=== PATIENT | male | born 1975 | race Two or more races ===

== ENCOUNTER 2025-03-06 06:36 | Day surgery (SDC) | payer BC, SELFPAY ==
--- NOTE | 2025-03-05 07:00 | EKG_ITS ---
[facility] Test Date: 2025-03-05 Pat Name: PEACE GONZALEZ Department: Room: - Gender: Male Division Chair: DORIS : 1975 Requested By: Dionicio Anthony Order Number: [id number] Reading MD: Dionicio Anthony Measurements Intervals [place] Rate: 67 P: 26 [place]: 152 QRS: 3 QRSD: 107 T: 45 QT: 409 QTc: 432 Interpretive Statements SINUS RHYTHM No previous ECG available for comparison /store/S0/[id number].pdf
[2025-03-05 09:31] LABS: Basophils % (Auto) 0 % (0-2.5); Eosinophils # (Auto) 0.2 Thou/mm3 (0.0-0.5); Eosinophils % (Auto) 3 % (0-10); Hematocrit 39.2 % (41.0-53.0); Hemoglobin 13.8 g/dL (13.5-16.0); Immature Granulocytes % (Auto) 0 % (0-0); Immature Granulocytes Auto 0.02 Thou/mm3 (0.00-0.00); Lymphocytes # (Auto) 1.9 Thou/mm3 (1.0-4.8); Lymphocytes % (Auto) 28 % (10-50); Mean Corpuscular HGB Conc 35.2 g/dl (31.0-37.0); Mean Corpuscular Hemoglobin 30.4 pg (25.0-35.0); Mean Corpuscular Volume 86 fL (80-100); Monocytes # (Auto) 0.5 Thou/mm3 (0.0-0.8); Monocytes % (Auto) 8 % (0-12); Neutrophils # (Auto) 4.1 Thou/mm3 (1.8-7.7); Neutrophils % (Auto) 61 % (37-80); Nucleated Red Blood Cell % 0 /100 WBC (0); Platelet Count 211 Thou/mm3 (140-440); RDW Standard Deviation 39.8 fL (35.1-43.9); Red Blood Count 4.54 Miln/mm3 (4.50-5.90); White Blood Count 6.8 Thou/mm3 (3.8-10.6)
[2025-03-05 09:39] LABS: Partial Thromboplastin Time 28.4 Seconds (22.0-36.0); Prothrombin Time 11.4 Seconds (9.0-12.2)
[2025-03-06] VITALS (12 sets, daily range): BP systolic 108–128; BP diastolic 57–74; PULSE 71–85; RESP 9–22; TEMP 36.8–37.2; O2SAT 92–96; BMI 36.1
--- NOTE | 2025-03-06 09:00 | PD.CARDCATH ---
Cardiac Cath Procedure Procedure Name Date of procedure: 03/06/25 RELATIONSHIP ADVISOR: Dionicio Anthony MD PROCEDURE PERFORMED: 1. Left heart cardiac catheterization including right, left coronary angiograms and left ventriculogram 2. Ultrasound-guided access of the right radial artery 3. Conscious sedation for 30 minutes. Procedure Narrative HISTORY AND INDICATIONS:Luis is a 49 y/o male with PMHx of HTN, non-insulin dependent diabetes type II (newly diagnosed), HLD, herniated lumbar disk requiring decompression, cervical osteoarthritis? requiring cervical surgery 2018 complicated by hoarseness of voice and limited upward movements, chronic neuropathy, drop foot (R), chronic weakness and previous falls (does not use walker), CHEYANNE (uses CPAP every night) who initially presented for an evaluation of generalized weakness, fatigue and varicose veins, patient came in for evaluation of shortness of breath on exertion, had ischemic work up and showed stress induced ischemia in the inferior, inferior lateral, inferior septal and apical segments. Patient was brought in for an elective cardiac catheterization. Patient was explained the risk benefits and alternatives of performing a left heart cardiac catheterization including the risk of bleeding, heart attack, stroke and in detail and the agreeable for the procedure. Consent signed, placed in the chart and H&P updated. DESCRIPTION OF PROCEDURE: The patient was brought to the cardiac catheterization lab and all asceptic precautions were followed. Patient was given 1 Mg of Versed and 50 mcg of fentanyl for moderate conscious sedation. 2 mL of lidocaine was given in the right wrist. The right radial artery was accessed via the ultrasound guidance as well as micropuncture technique. A 6 [place] glide sheath was introduced. We then used a 5 [place] TIG 4 catheter to perform the left and right coronary angiograms as well as a left ventriculogram which showed the following findings. 1. Left ventricular ejection fraction was normal at 60 to 65% without any regional wall motion abnormalities. LVEDP was normal at 15 mmHg. There was no significant transvalvular aortic gradient. 2. Right dominant circulation 3. Left main artery is a large-caliber vessel without any significant stenosis. 4. LAD is a large sized artery with a medium size diagonal and without show any significant disease. 5. LCx is a large sized artery with medium OM1 and small OM2 without any significant disease. 6. RCA is a large artery with medium RPDA and RPL without any significant disease. A radial band was used to achieve the hemostasis of the right radial artery access. Patient will be monitored in the cardiac manager cath lab for the next 2 to 3 hours and will be discharged home / telemetry later today if hemodynamically stable. Complications: None Specimens: None Blood loss: Estimated 5-10 ml Summary/findings: 1. Abnormal Stress test: LHC showed normal coronaries without any angiographically significant obstruction. 2. LVEF was normal at 60-65% and normal LVEDP of 15 mmHg. No transvalvular aortic gradient. Recommendations: 1. Recommended aggressive risk factor modification and aggressive medical treatment 2. Recommended no lifting more than 5 pounds for next 7-10 days and follow up in my office in 7 days. Dionicio Anthony MD Interventional Cardiology.
== END 2025-03-06 11:40 | disposition home or self-care (01) ==
PROVIDERS: PCP Family Medicine; Referring Provider Internal Medicine Cardiovascular Disease; Visit Provider Internal Medicine Cardiovascular Disease
PROC: (CPT 93458; principal; 2025-03-06 07:30)
DX: R06.02 Shortness of breath (principal); R94.39 Abnormal result of other cardiovascular function study; M21.371 Foot drop, right foot; G47.33 Obstructive sleep apnea (adult) (pediatric); I10 Essential (primary) hypertension; E78.5 Hyperlipidemia, unspecified; M51.26 Other intervertebral disc displacement, lumbar region; M47.812 Spondylosis without myelopathy or radiculopathy, cervical region; E08.43 Diabetes mellitus due to underlying condition with diabetic autonomic (poly)neuropathy; I83.813 Varicose veins of bilateral lower extremities with pain; E66.9 Obesity, unspecified
CPT/HCPCS: 93458; 36415; 80048; 85025; 85610; 85730; 93005; 99152; 99153; A4649; C1769; C1887; C1894; J0153; J0171; J0282; J0461; J1643; J2250; J2310; J2371; J3010; J3490; Q9967